=== PATIENT | male | born 1980 | race Caucasian/White ===

== ENCOUNTER 2016-11-04 18:12 | Emergency (ER) | payer MEDICAID ==
--- NOTE | 2016-11-04 18:18 | EDPHY ---
H & P HPI/ROS: CHIEF COMPLAINT: HISTORY OF PRESENT ILLNESS: REVIEW OF SYSTEMS: A ten point review of systems was performed and is negative with the exception of the items mentioned in the HPI. - Physical Exam Exam: General Appearance: Alert. Vital signs reviewed. * Eyes: Pupils equal and round, no conjunctival injection, no discharge. Anicteric. ENT, Mouth: Mucous membranes are moist, no oropharyngeal erythema or edema. Neck: No lymphadenopathy, supple. Respiratory: Lungs are clear to auscultation; no wheezes, rales, or rhonchi. Cardiovascular: Regular rate and rhythm; no murmur, rub, or gallop. Gastrointestinal: Abdomen is soft and nontender, no masses or organomegaly, bowel sounds normal. Skin: Warm and dry, no rashes on exposed skin, normal color. Back: Nontender to palpation over the thoracolumbar spine. No CVAT. Extremities: No lower extremity edema, no calf tenderness or swelling. Neurological: Alert and oriented. Moving all four extremities easily and equally. Cranial nerves II through XII are examined and are intact (visual acuity not tested). Strength is 5 over 5 bilaterally with testing of all major motor groups. Sensation is intact to light touch over all 4 extremities. Deep tendon reflexes are 2+ in the biceps and knees bilaterally. Gait is normal. [id number] is performed accurately. Psychiatric: Normal affect. Constitutional: Initial Vital Signs Temperature (C) 36.6 C 11/04/16 18:23 Heart Rate 111 H 11/04/16 18:23 Respiratory Rate 20 11/04/16 18:23 Blood Pressure 141/118 H 11/04/16 18:23 O2 Sat (%) 98 11/04/16 18:23 O2 Delivery Mode Room Air Allergies/Adverse Reactions: No Known Allergies Allergy (Unverified 11/04/16 18:23) Medical Decision Making ED Course/Re-evaluation: Patient left without being seen at 18:25. Departure - Departure Disposition: Left Without Being Seen Report Scribed for: Madhuri Silva Report Scribed by: Padma Parham Date of Report: 11/04/16 Time of Report: 18:30 Physician Review and Approval Statement: 11/04/16 18:18 Portions of this note were transcribed by the medical device. I, Dr. Madhuri Silva, personally performed the history, physical exam, and medical decision- making; and confirmed the accuracy of the information in the transcribed note.
[2016-11-04 18:26] VITALS: BP 141/118; PULSE 111; RESP 20; TEMP 97.9; O2SAT 98
== END 2016-11-04 18:25 | disposition left against medical advice (07) ==
DX: Z53.21 Procedure and treatment not carried out due to patient leaving prior to being seen by health care provider (principal)

== ENCOUNTER 2016-11-28 10:24 | Emergency (ER) | payer MEDICAID ==
[2016-11-28 10:29] VITALS: BP 157/105; PULSE 93; RESP 16; TEMP 98.4; O2SAT 99
--- NOTE | 2016-11-28 10:41 | EDPHY ---
H & P Stated Complaint: Slipped on ice 2 days ago; c/o L lower rib pain HPI/ROS: CHIEF COMPLAINT: Fall, left-sided rib pain HISTORY OF PRESENT ILLNESS: slipped and fell on the ice 2 nights ago, landing on the left side of the ribs. At time he noted the sudden onset of pain on the left anterior axillary line. Moderate to severe pain is worse with palpation, movement, Valsalva, deep inspiration. Some mild improvement at rest when laying flat. No shortness of breath but pleuritic, inspiratory pain. No chest pain at rest. No fever or chills. No injury to the head or neck. No injury to the abdomen or extremities. No other associated complaints or modifying factors. No use of blood thinners. REVIEW OF SYSTEMS: Ten systems reviewed and are negative unless otherwise noted in the HPI EXAMINATION General Appearance: Alert, no distress Head: normocephalic, atraumatic Eyes: Pupils equal and round, no conjunctival pallor or injection ENT, Mouth: Mucous membranes moist Neck: Normal inspection, supple, non-tender . Painless range of motion all planes. Respiratory: Lungs are clear to auscultation , no wheezing, rhonchi or crackles. There is tenderness to palpation of the left anterior axillary line. No crepitus. Cardiovascular: Regular rate and rhythm . No murmur Gastrointestinal: Abdomen is soft and nontender Back: non-tender, no bony abnormalities Neurological: A&O, nonfocal, normal gait Skin: Warm and dry, no rash. No edema, abrasion or contusion Extremities: Nontender, no pedal edema Psychiatric: Mood and affect normal DIFFERENTIAL DIAGNOSES: Including but not limited to contusion, fracture, dislocation, pulmonary contusion MDM: mechanical fall with left-sided rib pain. External examination reveals no outward sign of trauma. His vital signs were well within normal limits with perfect oxygenation at 100% on room air. No trauma elsewhere. The x-ray is ordered and pending at this time. 11:30 a.m. mechanical fall with a left 9th rib fracture. There is no pathology otherwise. Lungs are well aerated. Exam is unremarkable otherwise. I attempted to notify the patient of this but he is not in his room. We will attempt to locate the patient in the department that it seems as though he has left without treatment completed. 12:00 p.m. we did look at the patient several times and he is not in the department. He has left without treatment completed. Do not feel that the is at any risk from doing so as he has no obvious abnormality of the lungs. We will attempt to contact him to discuss the findings of the x-ray. SUPERVISION: This patient was independently evaluated without the aide of supervising physician. Source: Patient Exam Limitations: No limitations - Personal History Current Tetanus Diphtheria and Acellular Pertussis (TDAP): Yes - Medical/Surgical History Hx Asthma: No Hx Chronic Respiratory Disease: No Hx Diabetes: No Hx Cardiac Disease: No Hx Renal Disease: No Hx Cirrhosis: No Hx Alcoholism: No Hx HIV/AIDS: No Hx Splenectomy or Spleen Trauma: No Other PMH: denies - Social History Smoking Status: Current every day smoker Constitutional: Initial Vital Signs Temperature (C) 98.4 F 11/28/16 10:24 Heart Rate 93 11/28/16 10:24 Respiratory Rate 16 11/28/16 10:24 Blood Pressure 157/105 H 11/28/16 10:24 O2 Sat (%) 99 11/28/16 10:24 O2 Delivery Mode Room Air Allergies/Adverse Reactions: No Known Allergies Allergy (Verified 11/28/16 10:25) Home Medications: Medication Instructions Recorded Acyclovir [Zovirax 400 mg (*)] 400 mg PO 11/28/16 buPROPion SR [Wellbutrin 150mg SR 150 mg PO 11/28/16 (*)] Departure - Departure Disposition: Home, Routine, Self-Care Clinical Impression: Contusion of rib on left side Qualifiers: Encounter type: initial encounter Qualifier Code: (S20.212A) Contusion of left front wall of thorax, initial encounter Fall Qualifiers: Encounter type: initial encounter Qualifier Code: (W19.XXXA) Unspecified fall, initial encounter Fracture of rib Qualifiers: Encounter type: initial encounter Rib fracture type: single rib Fracture type: closed Laterality: left Qualifier Code: (S22.32XA) Fracture of one rib, left side, initial encounter for closed fracture Condition: Good Instructions: Rib Contusion (ED) Additional Instructions: [facility]. Return to the ER for worsening pain , fever, chills, shortness of breath or chest pain Referrals: [facility] [Outside] - As per Instructions
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
== END 2016-11-28 11:39 | disposition home or self-care (01) ==
DX: S22.32XA Fracture of one rib, left side, initial encounter for closed fracture (principal); F17.200 Nicotine dependence, unspecified, uncomplicated; W00.0XXA Fall on same level due to ice and snow, initial encounter

== ENCOUNTER 2016-12-09 19:11 | Emergency (ER) | payer MEDICAID ==
[2016-12-09] MEDS ORDERED: IBUPROFEN 600 MG TAB PO ONE (19:59)
[2016-12-09] MEDS ORDERED: OSELTAMIVIR PHOSPHATE 75 MG CAP PO ONE (20:31)
[2016-12-09] MEDS ORDERED: HYDROCOD/APAP 5/325 PREPACK#6 BTL TAKEHOME ONE (20:31)
--- NOTE | 2016-12-09 20:33 | EDPHY ---
H & P Stated Complaint: fever, cough, chest pain, [place], HPI/ROS: CHIEF COMPLAINT: Flu-like symptoms, positive flu in the home HISTORY OF PRESENT ILLNESS: 1-2 days of headache, malaise, body aches, fevers, chills, cough. Sudden onset of symptoms. They have been constant duration. Mild to moderate 1st, now moderate to severe. No neck pain or stiffness. No chest pain or shortness of breath. The cough is nonproductive at times. No abdominal or urinary complaints. He does have body aches all over. His son recently tested positive for influenza A. He has no urinary complaints. No modifying factors at home. No other associated complaints or modifying factors. REVIEW OF SYSTEMS: Ten systems reviewed and are negative unless otherwise noted in the HPI EXAMINATION General Appearance: Alert, no distress Head: normocephalic, atraumatic Eyes: Pupils equal and round, no conjunctival pallor or injection ENT, Mouth: Mucous membranes moist . Uvula midline. No erythema or edema. Airway is patent. Neck: Normal inspection, supple, non-tender. Painless range of motion all planes. No meningismus. Respiratory: Lungs are clear to auscultation . No wheezing, rhonchi or crackles. No acute distress. Cardiovascular: Regular rate and rhythm . No murmur. Pulses intact distally with symmetric radial and DP pulses at 2+ Gastrointestinal: Abdomen is soft and nontender. No tympany. No rigidity. No CVA tenderness. Back: non-tender, no bony abnormalities Neurological: A&O, nonfocal, normal gait Skin: Warm and dry, no rash Extremities: Nontender, no pedal edema Psychiatric: Mood and affect normal DIFFERENTIAL DIAGNOSES: Including but not limited to Influenza, viral illness, bronchitis, pneumonia MDM: 8:30 p.m. Positive influenza A. vital signs are well within normal limits. No chest pain. No hypoxia. No history or examination that would suggest meningitis. No abnormalities on auscultation. Discharged home with Tamiflu and [place]. We discussed the nature of the illness and will likely take 1-3 weeks for resolution. We also discussed return to the emergency department cautions including chest pain, shortness of breath, dizziness, lightheaded, vomiting. Patient is comfortable with this plan and discharged home in stable condition. SUPERVISION:This patient was independently evaluated without the aide of supervising physician. Source: Patient, Family Exam Limitations: No limitations - Personal History Current Tetanus/Diphtheria Vaccine: Yes Current Tetanus Diphtheria and Acellular Pertussis (TDAP): Yes - Medical/Surgical History Hx Asthma: No Hx Chronic Respiratory Disease: No Hx Diabetes: No Hx Cardiac Disease: No Hx Renal Disease: No Hx Cirrhosis: No Hx Alcoholism: No Hx HIV/AIDS: No Hx Splenectomy or Spleen Trauma: No Other PMH: denies - Social History Smoking Status: Never smoked Constitutional: Initial Vital Signs Temperature (C) 99.1 F 12/09/16 19:17 Heart Rate 90 12/09/16 19:17 Respiratory Rate 20 12/09/16 19:17 Blood Pressure 144/80 H 12/09/16 19:17 O2 Sat (%) 98 12/09/16 19:17 O2 Delivery Mode Room Air Allergies/Adverse Reactions: No Known Allergies Allergy (Verified 11/28/16 10:25) Home Medications: Medication Instructions Recorded Acyclovir [Zovirax 400 mg (*)] 400 mg PO 11/28/16 buPROPion SR [Wellbutrin 150mg SR 150 mg PO 11/28/16 (*)] Hydrocodone/APAP 5/325 [[place] 1 - 2 tab PO Q4H PRN #10 tab 12/09/16 5/325 (*)] Medical Decision Making - Data Points Medications Given: Discontinued Medications Acetaminophen/Hydrocodone Bitart ([place] 5/325mg Prepack#6) 1 btl TAKEHOME EDNOW ONE Stop: 12/09/16 20:32 Last Admin: 12/09/16 20:45 Dose: 1 btl Oseltamivir Phosphate (Tamiflu) 75 mg PO EDNOW ONE Stop: 12/09/16 20:32 Last Admin: 12/09/16 20:46 Dose: 75 mg Departure - Departure Disposition: Home, Routine, Self-Care Clinical Impression: Influenza A Condition: Good Instructions: Hydrocodone/Acetaminophen (By mouth), Oseltamivir (By mouth), Influenza (ED) Referrals: NONE *PRIMARY CARE P,. [Primary Care Provider] - As per Instructions Avelina Yee MD [Medical Doctor] - As per Instructions Prescriptions: Hydrocodone/APAP 5/325 [[place] 5/325 (*)] 1 - 2 tab PO Q4H PRN #10 tab PRN Reason: Pain, Moderate
[2016-12-09 20:37] VITALS: BP 127/72; PULSE 94; RESP 18; TEMP 99.9; O2SAT 96
== END 2016-12-09 20:53 | disposition home or self-care (01) ==
DX: J10.1 Influenza due to other identified influenza virus with other respiratory manifestations (principal)

== ENCOUNTER 2017-04-16 20:29 | Emergency (ER) | payer MEDICAID ==
[2017-04-16 20:50] VITALS: RESP 16; TEMP 98.6; O2SAT 95
[2017-04-16] MEDS ORDERED: ACYCLOVIR 400 MG TAB PO ONE (21:45)
--- NOTE | 2017-04-16 22:05 | EDPHY ---
H & P Stated Complaint: rash left arm; hasn't been taking acyclovir Time Seen by Provider: 04/16/17 21:29 HPI/ROS: CHIEF COMPLAINT: Skin rash HISTORY OF PRESENT ILLNESS: This is a 37-year-old male who is living in a half-way house. He presents with skin rash involving both arms and both legs. It has been present for over 2 months. It began while he was incarcerated. He has had similar skin rashes in the past when jailed. However, this 1 has persisted after release. While in the retirement he was treated for scabies. He also tried small amount of hydrocortisone cream but did not have enough to continue using it. The rash is itchy. He cannot related to any new foods or products. It is worse on his arms. It does not involve any webspaces or intertriginous folds. He has no other associated symptoms such as throat swelling. He also reports a history of genital herpes and states that he currently has an outbreak with lesions at the base of his penis and also on the tip of his penis. In the past he has taken suppressive acyclovir but is not currently taking this medication. He denies any recent sexual contacts. REVIEW OF SYSTEMS: A ten point review of systems was performed and is negative with the exception of the items mentioned in the HPI. Source: Patient - Personal History Current Tetanus/Diphtheria Vaccine: Unsure - Medical/Surgical History Hx Asthma: No Hx Chronic Respiratory Disease: No Hx Diabetes: No Hx Cardiac Disease: No Hx Renal Disease: No Hx Cirrhosis: No Hx Alcoholism: No Hx HIV/AIDS: No Hx Splenectomy or Spleen Trauma: No Other PMH: PSHx: denies. PMHx: Hepatitis-C. History of intravenous drug abuse , clean and sober for 3 months. Genital herpes - Social History Smoking Status: Never smoked Alcohol Use: None Drug Use: None, Other (History of substance abuse, IVDA) Additional Social History: He has been incarcerated for the last couple of months and was released to a half-way house 6 days ago. - Physical Exam Exam: General Appearance: Alert. Vital signs reviewed. Blood pressure 139/92. Eyes: Pupils equal and round, no conjunctival injection, no discharge. Anicteric. ENT, Mouth: Mucous membranes are moist, no oropharyngeal erythema or edema. Neck: No lymphadenopathy. Respiratory: Lungs are clear to auscultation; no wheezes, rales, or rhonchi. Cardiovascular: Regular rate and rhythm; no murmur, rub, or gallop. Gastrointestinal: Abdomen is soft and nontender, no masses or organomegaly, bowel sounds normal. Skin: Warm and dry. Scattered erythematous papular rash over both hands and arms. Some excoriations on the right forearm. Similar rash on both legs although few or papules. Genitalia: Normal circumcised male. There vesicular lesions at the base of the penis and 2-3 papular lesions on the tip of the penis. No penile discharge. No testicular tenderness. Extremities: No lower extremity edema, no calf tenderness or swelling. Rash as above. Neurological: Alert and oriented. Moving all four extremities easily and equally. Psychiatric: Normal affect. Constitutional: Initial Vital Signs Temperature (C) 37 C 04/16/17 20:46 Heart Rate 79 04/16/17 20:46 Respiratory Rate 16 04/16/17 20:46 Blood Pressure 139/92 H 04/16/17 20:46 O2 Sat (%) 95 04/16/17 20:46 O2 Delivery Mode Room Air Allergies/Adverse Reactions: No Known Allergies Allergy (Verified 11/28/16 10:25) Home Medications: Medication Instructions Recorded Acyclovir 400 mg PO TID #65 mg 04/16/17 Hydrocortisone 1% [Hydrocortisone 14 gm TP BID PRN #1 cream 04/16/17 1% cream (*)] diphenhydrAMINE [Benadryl 25 MG 25 mg PO Q6-8PRN PRN #20 tab 04/16/17 (*)] Medical Decision Making ED Course/Re-evaluation: It is not clear to me what is causing the rash on his arms and legs. This does not appear to be scabies. He was treated for scabies while recently incarcerated but he does not think that he ever had scabies. He has had rashes similar to this in the past. This rash does not appear psoriatic. It does not appear eczematous to me. It is not urticarial. The distribution of the rash is not suggestive of like contact dermatitis. I am recommending Benadryl for symptom control and hydrocortisone cream and have prescribed ride prescriptions for both. I recommend follow-up with a specialist of the rash does not subside. I think that the genital lesions are herpes. I am starting him back on a suppressive dose of acyclovir. Urine was obtained to test for chlamydia and gonorrhea. - Data Points Laboratory Results: 04/16/17 21:45 C.trachomatis RNA (TMA) Pending N.gonorrhoeae RNA (TMA) Pending Medications Given: Discontinued Medications Acyclovir (Acyclovir) 400 mg PO EDNOW ONE Stop: 04/16/17 21:46 Last Admin: 04/16/17 22:09 Dose: 400 mg Departure - Departure Disposition: Home, Routine, Self-Care Clinical Impression: Rash, Genital herpes in men Condition: Good Instructions: Genital Herpes Simplex (ED), Acute Rash (ED) Additional Instructions: I am not sure what is causing the rash on your arms and legs. I do not think that this is scabies. I recommend that you use hydrocortisone cream sparingly on the itchy areas. I also recommend Benadryl for itching. I am writing prescriptions for these. The results of your urine testing will not be available for a few days. You will be contacted if you have positive test results. I have written her prescription for acyclovir to take for your genital herpes. Referrals: [facility] [Outside] - As per Instructions Prescriptions: Acyclovir 400 mg PO TID #65 mg diphenhydrAMINE [Benadryl 25 MG (*)] 25 mg PO Q6-8PRN PRN #20 tab PRN Reason: rash, itching Hydrocortisone 1% [Hydrocortisone 1% cream (*)] 14 gm TP BID PRN #1 cream PRN Reason: Rash
[2017-04-16 22:55] VITALS: BP 132/90; PULSE 76
[2017-04-17 14:54] LABS: CHLAMYDIA AMPLIFICATION GENPRB NEGATIVE (NEGATIVE)
== END 2017-04-16 22:55 | disposition home or self-care (01) ==
DX: R21 Rash and other nonspecific skin eruption (principal); A60.02 Herpesviral infection of other male genital organs